=== PATIENT | male | born 1930 | race Caucasian/White ===

== ENCOUNTER 2020-05-29 13:57 | Emergency (ER) | payer OTHER ==
[~2020-05-29] VITALS: Ht 172.7 cm; Wt 71.2 kg
[2020-05-29 15:47] LABS: ABSOLUTE NEUTROPHILS 6.4 thou/uL (1.4-8.2); BASOPHILS 0.8 % (0.0-2.0); EOSINOPHILS 1.2 % (0.0-3.0); HEMATOCRIT 36.6 % (42.0-52.0); HEMOGLOBIN 12.2 gm/dL (14.0-18.0); LYMPHOCYTES 12.8 % (24.0-44.0); MCHC 33.3 g/dL (28.0-37.0); MCV 93.2 fL (80.0-100.0); PLATELET COUNT 193 thou/uL (150-400); POLYS 76.2 % (36.0-66.0); RBC 3.93 mil/uL (4.50-6.00); RDW 13.9 % (10.5-14.5); WBC 8.4 thou/uL (4.0-11.0)
[2020-05-29 16:05] LABS: CALCIUM 8.6 mg/dL (8.5-10.1); CREATININE 1.4 mg/dL (0.7-1.3); POTASSIUM 3.6 mmol/L (3.5-5.1)
[2020-05-29 16:11] LABS: ALBUMIN 3.1 g/dL (3.4-5.0); TOTAL BILIRUBIN 0.7 mg/dL (0.2-1.0); TOTAL PROTEIN 5.9 g/dL (6.4-8.2)
[2020-05-29] MEDS ORDERED: COLACE100 MG PO (16:25)
[2020-05-29] MEDS ORDERED: BUPROPION XL300 MG PO (16:25)
[2020-05-29] MEDS ORDERED: ASA81BEC PO (16:25)
[2020-05-29] MEDS ORDERED: DONEPEZIL HCL5 MG PO (16:26)
[2020-05-29] MEDS ORDERED: PROSCAR 5MG TABL5 M1 PO (16:26)
[2020-05-29] MEDS ORDERED: LOPRESSOR50 MG PO (16:27)
[2020-05-29] MEDS ORDERED: MAGNESIUM250 MG PO (16:27)
[2020-05-29] MEDS ORDERED: TAMSULOSIN HCL0.4 MG PO (16:28)
[2020-05-29] MEDS ORDERED: VITAMIN C500 M2 PO (16:28)
[2020-05-29] MEDS ORDERED: QUETIAPINE FUMA25 MG PO (16:28)
--- NOTE | 2020-05-29 16:28 | EKG ---
[facility] [place] [address] ELECTROCARDIOGRAM REPORT Name: YONNY BONILLA Room #: PRE M.R.#: [id number] Admission: Attend Phys: Discharge: Date of : [birth year] Report #: [id number] THIS REPORT FOR: cc: Alfred Ortiz MD [facility] ~ THIS REPORT FOR: //name// [facility] ED Test Date: 2020-05-29 Test Time: 15:44:19 Pat Name: YONNY BONILLA Department: Room: Gender: M Lineman A Class: : 1930 Requested By: Pranay Raygoza Order Number: [id number] MD: Alfred Ortiz Measurements Intervals [place] Rate: 66 P: 22 DE: 190 QRS: -37 QRSD: 115 T: 25 QT: 439 QTc: 460 Interpretive Statements Sinus rhythm Nonspecific IVCD with LAD Left ventricular hypertrophy Artifact in lead(s) II,aVR,aVF,V1,V2,V3,V4,V5,V6 No previous ECG available for comparison Electronically Signed On 05-29-2020 16:28:15 CHRONOMETER TESTER by Alfred Ortiz [email or web address] <ELECTRONICALLY SIGNED> By: Alfred Ortiz MD, FACC 05/29/20 1628 [id number] Alfred Ortiz MD, [facility] /EPI
[2020-05-29] MEDS ORDERED: VITAMIN D PO (16:30)
[2020-05-29] MEDS ORDERED: REFRESH OPHTHALMIC (16:31)
[2020-05-29] MEDS ORDERED: SYSTANE 0.6% OPHTHALMIC (16:33)
[2020-05-29 16:43] LABS: URINE BILIRUBIN NEGATIVE (Negative); URINE BLOOD 3+ (Negative); URINE CLARITY TURBID; URINE COLOR RED; URINE GLUCOSE-RANDOM* NEGATIVE (Negative); URINE KETONES 1+ (Negative); URINE PROTEIN (DIPSTICK) 2+ (Negative); URINE SPECIFIC GRAVITY 1.025 (1.005-1.035); URINE UROBILINOGEN 0.2 E.U./dl (0.2-1.0)
[2020-05-29 16:44] LABS: URINE LEUKOCYTES-REFLEX 1+ (Negative); URINE NITRITE-REFLEX POSITIVE (Negative)
[2020-05-29] MEDS ORDERED: TYLENOL325 MG PO (16:57)
[2020-05-29] MEDS ORDERED: FISH OIL 1,001000 M3 PO (16:57)
[2020-05-29 16:58] LABS: URINE RBC >20 Many /HPF (0-2)
[2020-05-29] MEDS ORDERED: IBUPROFEN 400400 M1 PO (16:58)
[2020-05-29] MEDS ORDERED: ATIVAN0.5 M1 PO (16:58)
[2020-05-29 16:59] LABS: BACTERIA-REFLEX 1-9 Few /HPF (None Seen); CASTS None Seen /LPF (None Seen); CRYSTALS None Seen /LPF (None Seen); SQUAMOUS None Seen /LPF (0-3); URINE WBC-REFLEX 6-15 Few /HPF (0-5)
[2020-05-29] MEDS ORDERED: MIRALAX17 GM PO (17:00)
[2020-05-29 21:20] VITALS: BP 129/76
== END 2020-05-29 21:02 ==
LOC: ER 13:57
PROVIDERS: Emergency Medicine
DX: T45.1X1A Poisoning by antineoplastic and immunosuppressive drugs, accidental (unintentional), initial encounter (principal); R45.1 Restlessness and agitation; N39.0 Urinary tract infection, site not specified; Z79.82 Long term (current) use of aspirin; Z79.899 Other long term (current) drug therapy; Z20.828 Contact with and (suspected) exposure to other viral communicable diseases; Y92.89 Other specified places as the place of occurrence of the external cause

== ENCOUNTER 2020-05-29 18:51 | Inpatient (IN) | payer OTHER ==
[~2020-05-29] VITALS: Ht 180.3 cm; Wt 69.3 kg
[~2020-05-29 18:51] MED LIST: ASA81BEC PO; ATIVAN0.5 M1 PO; BUPROPION XL300 MG PO; COLACE100 MG PO; DONEPEZIL HCL5 MG PO; FISH OIL 1,001000 M3 PO; IBUPROFEN 400400 M1 PO; LOPRESSOR50 MG PO; MAGNESIUM250 MG PO; MIRALAX17 GM PO; PROSCAR 5MG TABL5 M1 PO; QUETIAPINE FUMA25 MG PO; REFRESH OPHTHALMIC; SYSTANE 0.6% OPHTHALMIC; TAMSULOSIN HCL0.4 MG PO; TYLENOL325 MG PO; VITAMIN C500 M2 PO; VITAMIN D PO
[2020-05-29 22:10] VITALS: BP 160/90
--- NOTE | 2020-05-30 02:45 | NUR ---
PT ARRIVED IN THE UNIT VIA CART ACCOMPANIED BY RN. PT TRANSFERED TO THE BED WITH MINIMUM ASSIST. PT ALERT AND ORIENTED TO SELF WITH CONFUSION. PT ASSISTED TO THE BATHROOM BUT NO RESULTS OBSERVED. PRIOR TO COMING TO THE ER, PT WAS LIVING AT [facility] IN THE MEMORY UNIT AND WAS BEING TREATED FOR UTI. PER ER REPORT, PT WAS GIVEN A DOSE OF IV ABT. PT IS A HIGH FALL RISK WITH A RECENT FALL AT THE SN[facility]. NO DELUSIONS NOTED THIS FAR. PT REMAINS CONFUSED AND BECAME COMBATIVE WHEN STAFF TRIED TO KEEP HIM IN BED. PT WAS PUT IN A NARESH CHAIR AND TAKEN TO THE DAY ROOM FOR CLOSE OBSERVATION. NO SIGNS OF SI/HI NOTED. WILL CTA.
--- NOTE | 2020-05-30 04:09 | NUR ---
Med rec completed with MAR from facility that patient resides. Patient currently prescribed Metoprolol Tartrate 25mg po daily, hold for BP <110/60 or pulse <60. Orders obtained to continue from Dr. Marcano. Pharmacist called stating that she does not feel comfortable continuing this medication due to it being Metoprolol Tartrate vs Metoprolol Succinate and would like for it to be clarified by MD during the day.
--- NOTE | 2020-05-30 07:24 | NUR ---
Patient has shown increase in impulsive behaviors. Toileted, provided fluids, provided activity pad. Patient now becoming aggressive by hitting, kicking, yelling at staff. Patient displaying unsteady gait and poor balance. Refusing to remain seated. Has required 1:1 supervision over the last 1 hour to keep patient and other peers safe. Spoke with Dr. Marcano. Orders obtained for Geodon 10mg IM STAT and 1:1 while awake due to impulsive and assaultive behaviors.
[2020-05-30 08:45] VITALS: BP 122/85
[2020-05-30 16:10] LABS: HEMATOCRIT 35.8 % (42.0-52.0); MCHC 33.7 g/dL (28.0-37.0); RBC 3.89 mil/uL (4.50-6.00); RDW 13.8 % (10.5-14.5); WBC 7.6 thou/uL (4.0-11.0)
[2020-05-30 16:17] LABS: CALCIUM 8.6 mg/dL (8.5-10.1); CREATININE 1.1 mg/dL (0.7-1.3); POTASSIUM 3.8 mmol/L (3.5-5.1)
--- NOTE | 2020-05-30 18:08 | NUR ---
Alert and orientated to name only, states he likes to be called "Guicho". Denies SI/HI. Agitated with alot of confused, advent focused speech at beginning of shift but then calmed down and slept. Became restless with alot of urinary urgency without any results. Small amts green stains with bloody appearing spots on diapers. Ativan and tylenol given mid afternoon with moderate results. Placed on 1:1 d/t extreme impulsitivity. Currently sleeping without s/o distress. Breath sounds clear t/o. Reg HR auscultated. Color pink with brisk capillary refill and palpable peripheral pulses. No significant UO, bladder scan done which showed >[address] Patton office called for orders--reached a Dr. Lazcano who stated Dr. Patton was his partner and that he was out of town. Discussed lack of UO, stains on diaper, UA from ER. He inquired why psych/hospitalist was not addressing and then stated that neither he or Dr. Patton had priviledges but suggested cleary, UA with cx and cipro 250mg bid and hospitalist consult. Dr. Krys ace, ordered hospitalist consult. Dr. Francisco ace, ordered cleary placement and then came and examined pt. Cleary placed with minimal difficulty, 750 cc of red urine returned with many small clots, ua sent to lab which was then discarded. Antibiotics started per order. Pt. sleeping comfortably after cleary placement. Active bowel sounds over soft round abdomen. Moderate soft, unformed brown stool per brief. Able to walk independently with steady gait but very impulsive and resistant at times to direction. Took medication whole with water. Currently sleeping in room without s/o distress.
[2020-05-30 19:45] VITALS: BP 164/97
[2020-05-30 22:47] VITALS: BP 148/92
--- NOTE | 2020-05-30 22:48 | NUR ---
BP at start of shift 164/97, left arm, lying. Patient refusing all PO meds at this time. BP re-checked manually on left arm, lying, 148/92. Message left with Yoseph WILEY.
--- NOTE | 2020-05-31 00:53 | NUR ---
PT CARE ASSUMED AT 1900. PT LAYING IN BED AT SHIFT CHANGE WITH NO SIGNS OF DISTRESS. PT AGITATED DURING MED PASS AND DECLINED TO TAKE HIS HS MEDS ADMINISTERED WHOLE. HE SPIT THEM OUT AND SAID, " NOT TONIGHT." THIS NURSE ATTEMPTED TO GIVE PT CRUSHED MEDS IN APPLE SAUCE BUT PT REFUSED AND BECAME AGITATED AND GETTING LOUD. PT CONFUSED AND DELUSIONAL. COMPLETE ASSESSMENT WAS NOT DONE PT WAS AGITATED. WILL CTM.
--- NOTE | 2020-05-31 04:46 | NUR ---
Patient woke up around 0230 and was attempting to pull out urinary catheter. Staff observed patient had been incontinent of bowel. Patient immediately became physically aggressive by kicking and hitting staff with his fists. Required staff x3 to complete senia care and linen change. Remained assaultive while addressing toileting needs. Education completed several times on need to clean patient and to not pull on catheter. Patient screaming, using foul language. Once senia care completed, patient was able to rest in bed without further issue.
[2020-05-31 07:36] VITALS: BP 157/82
--- NOTE | 2020-05-31 11:02 | NUR ---
ACCEPTED CARE OF PATIENT FROM 7P-7A SHIFT. PT IS UP WITH 1 ASSIST WITH WALKER TO DINING ROOM TO EAT. IS UNABLE TO FEED SELF AND IS ASSISTED BY STAFF. EATS 50%. ENC FLUIDS. PT IS CONFUSED A/0X 1. IS IMPULSIVE WITH THOUGHTS AND ACTIVITY. HAS A CASILLAS TO DD WITH BLOODY DRAINAGE. HGB IS 12.1 AND IS ON ABT FOR UTI. PT DAUGHTER CALLED AND UPDATE ON CARE GIVEN TO HER. TAKES HIS MEDS CRUSHED IN APPLESAUCE WITHOUT DIFFICULTY. DR MICHAEL HERE ORDER TO IRRIGATE CASILLAS WITH STERILE WATER OBTAINED AND 50CC STERILE WATER CARSON WELL. TO IRRIGATE Q 3HR TILL CLEARS. PT INCONTINENT OF BM BUT INDICATES HE WANTS TO SIT ON STOOL.
[2020-05-31 11:11] VITALS: BP 157/82
--- NOTE | 2020-05-31 12:29 | NUR ---
PT. INCREASING IRRITABLY DAY GOES ON. ABOUT 1200 LUNCH CAME, HE WAS STATING IN AN ANGRY VOICE, "I AM NOT EATING THIS! MY NAME IS [id number]. THAT IS NOT MY NAME. HE REPEATED THIS FOR OVER AN HOUR. HE KEPT SAYING, "THEY JUST CAN'T SPELL IT".
--- NOTE | 2020-05-31 17:02 | NUR ---
JULIOCESAR made several attempt to reach Pts daughter Tree (DPOA) to complete assessment. Monday at 3:47pm tree contacted JULIOCESAR and completed assessment.
--- NOTE | 2020-05-31 17:42 | NUR ---
1700-PT SETS AT TABLE TO EATS REQUIRES FEEDING BUT TRIES TO DRINK AND EAT A FEW BITES ON OWN.TOOK AFTERNOON MEDS CRUSHED.PT CONTINUES TO HAVE CASILLAS TO DD AND IT HAS BEEN IRRIGATED WITH 50CC STERILE WATER Q 3HRS. WITH RETURN OF RED TINGED URINE. APPEARS LESS MOY RED COLOR AND 600CC URINE OUTPUT NOTED AND DR MICHAEL HERE AT [facility]PPER TO SEE PT.PT IS RESTLESS IN CHAIR AT TIMES IS NOT COMBATIVE CONTINUES TO BE A/O X 1.
--- NOTE | 2020-05-31 18:38 | NUR ---
1814- pt is up in G/C color pink awake watching TV at times. b/p at 1750 is 89/47. taken in left arm is 84/41. at 181 B/P is 104/56. PT alert calm setting.evin continues to dd.
[2020-05-31 18:56] VITALS: BP 104/56
--- NOTE | 2020-06-01 04:34 | NUR ---
Assumed care on 05/31/20 @ 19:15, seated in cristi chair in the day room, watching Chief's football game. Makes comments in which the first short sentence seems pertinent to current activity, such as the football game, then his next sentence is a confused combination of words and unrelated ideas. Trying to hide his confusion and dementia. A&Ox2, not oriented to hospital and purpose of hospitalization, not oriented to president. Confused as to his catheter, saying, this is between you and your . Tries to pull catheter out. removed stat lock from thigh. Catheter Flushed as per orders. Output is red to burgandy in color. After flush is light clear pink. Awake much of the night, talking to himself. Bed in low position, bed alarm set, will continue to monitor as per [facility] unit protocol for safety and comfort.
[2020-06-01 04:53] VITALS: BP 104/56
--- NOTE | 2020-06-01 06:35 | NUR ---
Slept 9 hours overnight.
[2020-06-01 08:00] VITALS: BP 142/85
[2020-06-01 08:55] VITALS: BP 142/85
--- NOTE | 2020-06-01 12:37 | NUR ---
JULIOCESAR reviewed pt's chart and saw he resides at [facility] [phone]. JULIOCESAR contacted [facility] and got their fax number to send updates to them [phone]. JULIOCESAR faxed updates. SW team will continue to follow pt during his stay on this unit.
[2020-06-01 13:39] VITALS: BP 104/56
--- NOTE | 2020-06-01 13:45 | NUR ---
ASSUMED CARE AT 0700 THIS MORNING. PT. LYING IN BED WITH BLANKET OVER HIS ARMS AND TORSO. WHEN BLANKET WAS PEELED BACK, PT. WAS NOTED TO HAVE BOTH OF HIS HANDS ON HIS URINARY CATHETER PULLING ON IT. SMALL AMOUT OF BLOOD NOTED AT THE HEAD OF HIS PENIS AT CATHETER INSERTION SITE. STAFF FREED PT'S HANDS FROM HIS CATHETER. HIS UNDERWARE AND PANTS WAS PUT ON HIM AND HE WAS PLACED IN RECLINING CHAIR AND TAKEN TO THE DINING ROOM. PT. WAS CONTINOUSLY ANGRY ATTEMPTING TO KICK AND HIT STAFF. HE WAS CALLING STAFF "BITCH" AND "WITCH". HE WAS CONTINOUSLY KICKING AND HITTING. DR. MORA NOTIFIED OF THE SAME. HE ORDERED GEODON 15 MG IM AND THIS WAS GIVEN AT 0920. HE WENT TO SLEEP IN THE RECLINGING CHAIR. THIS RN APPROACHED HIM TO IRRIGATE HIS CASILLAS. HE WOULD NOT PERMIT THIS. HE CONTINUALLY CURSED AT THIS RESULTS ENGINEER, KICKING AND HITTING. DR. MORA NOTIFIED OF INABILITY TO IRRIGATE CASILLAS. DAUGHTER CALLED AND UPDATE PROVIDED. AFTER HE CALMED DOWN SOME, HIS CRUSHED MEDS IN APPLESAUCE WAS GIVEN TO HIM. HE DID EAT THIS. HE STILL WOULD NOT PERMIT HIS CASILLAS FLUSHED.
[2020-06-01 19:34] VITALS: BP 156/96
[2020-06-01 20:14] VITALS: BP 156/96
--- NOTE | 2020-06-01 23:53 | NUR ---
PATIENT HAS BEEN AGITATED ALL EVENING. PATIENT TAKEN FROM DINING ROOM TO BED AROUND 2030 TONIGHT. HE CONTINUES TO BE 1:1 WA. HE HAS A CASILLAS CATHETER IN THAT HE KEEPS PULLING ON AND URINE BAG IS BRIGHT RED FROM BLOOD. USED STERILE WATER TO IRRIGATE AT THAT TIME. URINE STILL APPEARS RED TO DD INTO CASILLAS BAG. REIRRIGATED LINE 3 HOURS LATER AND STILL ALOT OF BLOOD BUT URINE FLOW DID INCREASE SOME. WATCHED PATIENT HE RESTED KEEPING HIS HANDS OUTSIDE OF COVERS. CATHETER SECURED TO LEG WITH KERLIX. AFTER SEVERAL MINUTES PATIENT BEGAN PULLING FORCEFULLY ON CATHETER LINE STIMULATING BLOOD FLOW FROM THE PENIS. TOOK 3 NURSES TO HOLD DOWN AND CLEAN WHILE THIS NURSE CALLED DR MORA STAT FOR ORDERS. ORDER GIVEN FOR GEODON 20MG IM STAT. INJECTION GIVEN IN RIGHT THIGH. COVERS PLACED ON PATIENT AFTER TRYING TO CALM HIM DOWN. HE WAS VERY COMBATIVE, HITTING, BITING, AND KICKING PEOPLE. KEPT ARMS ABOVE BLANKETS. DOOR CAPTAIN WITH PATIENT 1:1 BESIDE BED AND LIGHTS TURNED OFF. PATIENT IS CALMING AT THIS TIME. CONTINUING TO MONITOR. BED IN LOW POSITION AND BED ALARM IS ON AND 1:1 WITH PATIENT.
--- NOTE | 2020-06-02 02:51 | NUR ---
PATIENT CONTINUED TO PULL ON HIS CASILLAS CATHETER AFTER HAVING GEODON 20MG IM. BLADDER SCANNED PATIENT AND CASILLAS IS DRAINING AND THERE WAS 4CC NOTED ON SCAN. CALLED DR MORA AND RECEIVED ORDER TO DC CATHETER. PRN BLADDER SCAN IF PATIENT HAS NOT VOIDED OR HAD INCONTINENCE. CATHETER REMOVED AND HAD A CLOT THAT CAME OUT WITH IT. PATIENT HAS HAD SOME DRIBBLE OF URINE WITH BRIGHT RED BLOOD. PATIENT WAS PLACED IN RECLINER AND MOVED TO THE DINING ROOM. HE WAS COMBATIVE AND DID NOT WANT LAP DAWN ON OR TO STAY SITTING IN RECLINER WITH CHAIR ALARM ON. HE KEPT STATING HE WANTED TO STAND UP. STOOD PATIENT UP AND HE SAT ON COUCH. OFFERED HIM ICE WATER AND HE SAT AND DRANK A CUP OF ICE WATER. HE THEN SAID HE NEEDED TO FIND A TOILET. WITH ASSIST X1 WALKED PATIENT TO HIS ROOM AND HE SAT ON TOILET. HE DID HAVE SMEARS OF STOOL BUT DID NOT VOID. WALKED PATIENT AROUND UNIT AND BACK TO RECLINER. HE RECLINED FOR AN HOUR AND WAS CALM AND COMPLIANT AND TALKED WITH NURSES. HE WAS TALKING TO HIMSELF AND TO HIS HE WAS SEEING. PATIENT THEN SAID HE WAS READY TO GO DOWN THE LOZA TO HIS ROOM HE WAS THINKING HE WAS IN HIS HOUSE, AND GO TO BED. 2 MEDICAL INSURANCE CODING SPECIALIST'S ASSISTED HIM TO HIS ROOM. HE DID NOT WANT TO USE THE BATHROOM. HE WENT TO BED WITHOUT INCIDENT. BED IN LOW POSITION AND BED ALARM IS ON. CONTINUING TO MONITOR FOR SAFETY AND STATUS OF PATIENT. MAYITO MELISSA NP DID COME BY TO EVALUATE PATIENT STATUS AND TO SPEAK WITH HIM. SHE DISCUSSED POST CASILLAS PROTOCOL WITH THIS NURSE. CONTINUING TO MONITOR.
--- NOTE | 2020-06-02 05:21 | NUR ---
PATIENT RESTING IN BED WITH EYES CLOSED. PATIENT HAS NOT VOIDED OR BEEN INCONTINENT FOR 4 HOURS. BLADDER SCAN READING OF 31CC FOUND. REFUSED TO USE TOILET. COMBATIVE THRU PROCEDURE. PATIENT CALMED AND BACK TO REST FOLLOWING BLADDER SCAN.
--- NOTE | 2020-06-02 06:37 | NUR ---
PATIENT RESTING IN BED. NO ACTIVE BLEEDING FROM URETHRA. DOES HAVE SCANT LEAKAGE OF BLOOD WITH MANIPULATION OF PENIS. PATIENT WAS NON COMBATIVE AND ALLOWED NURSE TO CHECK FOR BLEEDING AFTER BRIEF EXPLANATION OF WHY IT WAS NEEDED. PATIENT BACK TO SLEEP. HE HAD 2.6 HOURS OF SLEEP LAST NIGHT. BED IN LOW POSITION AND BED ALARM ON.
[2020-06-02 07:42] VITALS: BP 143/84
--- NOTE | 2020-06-02 12:30 | NUR ---
HAS REMAINED ON 1;1 SO FAR THIS SHIFT-INITIALLY RESISITVE WITH TAKING AM MEDICATIONS CLOSING MOUTH TIGHTLY STATING "I DON'T WANT THAT" DID LATER TAKE WITH PROMPTING AND ENCOURAGEMENT. APPEARS TO BE HAVING VISUAL HALLUCINATIONS YELLING AT THIS NURSE LOUDLY "I AM DYING TAKE THESE GLASS PEICES OFF-I AM COVERED IN CRUSHED GLASS. LATER IN SHIFT REPORTS THAT HE IS COVERED INSHARDS OF GLASS AGAIN. WAS INCONTINENT OF MODERATE AMOUNT RED TINGED URINE-BLADDER SCAN COMPLETED AT 1030 POST VOID AND 60 CC IN BLADDER PER SCAN
[2020-06-02 13:38] LABS: ABSOLUTE NEUTROPHILS 4.4 thou/uL (1.4-8.2); BASOPHILS 0.6 % (0.0-2.0); EOSINOPHILS 2.5 % (0.0-3.0); HEMATOCRIT 40.6 % (42.0-52.0); HEMOGLOBIN 13.3 gm/dL (14.0-18.0); LYMPHOCYTES 13.2 % (24.0-44.0); MCH 30.5 pg (26.0-34.0); MCHC 32.9 g/dL (28.0-37.0); MCV 92.9 fL (80.0-100.0); MONOCYTES 10.3 % (1.0-8.0); PLATELET COUNT 179 thou/uL (150-400); POLYS 73.4 % (36.0-66.0); RBC 4.37 mil/uL (4.50-6.00); RDW 14.3 % (10.5-14.5)
[2020-06-02 13:51] LABS: CALCIUM 9.1 mg/dL (8.5-10.1); POTASSIUM 3.7 mmol/L (3.5-5.1)
[2020-06-02 19:15] VITALS: BP 150/76
--- NOTE | 2020-06-03 02:01 | NUR ---
06-02-20 CARE TRANSFERRED 1899 OBSERVED PT SUPINE IN BED WITH EYES OPEN. 193 PT AAOX1, VSS, RR EVEN AND NONLABORED ON RA, PT REPORTS PAIN IN HIS JOINTS AND SCORES AT 5 ON 0-10 SCALE. PT DENIES SI/HI. PT PRESENTS RESTLESS AND COOPERATIVE. DURING MEDICATION ADMIN PT HAD NO DIFFICULTIES WITH CRUSHED MEDICATION IN APPLESAUCE, BUT NOTED PT CHEEKED MEDICATION AND SPIT MEDICATION ON FLOOR AND PT BECAME AGITATED AND YELLING, "THAT TASTE LIKE SHIT". PRN MEDICATION WAS ADMIN PRESCRIBED. LATER NOTED PT RESTING LEFT SIDE WITH EYES CLOSED IN BED. ZERO S/S OF ACUTE DISTRESS NOTED, PT WILL CONTINUE TO BE MONITOR PER [facility] PROTOCOL
[2020-06-03 07:45] VITALS: BP 107/58
[2020-06-03 11:15] VITALS: BP 107/58
--- NOTE | 2020-06-03 16:04 | NUR ---
Alert and orientated to name only. Calm, cooperative and compliant in AM, able to take a few steps to sit in gerichair. Participating in group. Denies SI/HI. Became agitated around lunchtime, using profanity and pushing against table. 5mg Olanzapine given per R arm. Breath sounds clear. Reg HR auscultated. Color pink with brisk capillary refill and palpable peripheral pulses. Small amt dried bldy drainage on brief, bladder scan done, >533. Mostly cooperative with straight cath for urine midmorning, 650 cc brown drainage. Active bowel sounds over soft, rounded abdomen. Smear of brown stool this AM. Cooperative with afternoon meds. Sitting in dining room without s/o distress.
--- NOTE | 2020-06-04 03:23 | NUR ---
06-03-20 CARE TRANSFERRED AT 1900 OBSERVED PT SITTING IN [facility] WITH LAPBUDDY IN PLACE. 2030 PT AAOX1, COMBATIVE AND CONFUSED REFUSING VS AND NURSING ASSESSMENT. LATER PT REFUSED MEDICATION AND SECURITY WAS CALLED AND PRN IM MEDICATION ADMIN IN RIGHT DELTOID. LATER PT WAS CALMER, BUT STILL AGGRESSIVE. ASSISTED PT INTO BED AND NOTED BRIEF WITH YELLOW URINE, PERIAREA CLEANED WITH SOAP, WATER AND PATTED DRY AND BERRIER CREAM. RESPONDED TO BED ALARM AND PT WAS SITTING ON SIDE OF BED AND TRYING TO GET UP. LATER ASSISTANT TECHNICIAN BROUGHT PT BACK OUT INTO DAY ROOM IN [facility] WITH LAPBUDDY IN PLACE. PT HAS NO S/S OF ACUTE DISTRESS, PT WILL CONTINUE TO BE MONITOR.
--- NOTE | 2020-06-04 08:21 | NUR ---
RT Progress Note- Rell's participation in the milieu and recreation groups has been variable and fairly limited overall d/t his cognitive impairment and impulsive behaviors. When Rell is yelling out or experiencing hallucinations he is disruptive to the milieu and requires 1;1 attention to calm him down which hinders the group. However, when he is calm, Rell is able to follow along in simple exercises or reminiscing groups. LINE HAUL DRIVER will continue to engage Rell and encourage positive behavior.
[2020-06-04 09:26] VITALS: BP 153/84
[2020-06-04 10:27] VITALS: BP 153/84
--- NOTE | 2020-06-04 13:44 | NUR ---
1300 RESUMMED CARE FROM OVERNIGHT SHIFT THIS AM, PATIENT IN NARESH CHAIR IN DAY ROOM SLEEPING. PATIENT HAD IM OF OLANZAPINE LAST NIGHT PATIENT DID NOT EAT MUCH OF HIS BREAKFAST. I CRUSHED PATIENTS MED AND PUT IT IN APPLESAUCE PATIENT. PATIENTS ABDOMEN SOFT FLAT BOWEL SOUNDS PRESENT LUNGS CLEAR. PATIENT IS ORIENTED TO SELF ONLY PATIENT IS NOT EATING OR DRINKING MUCH. HE DOES WAKE UP AND INTERACT WITH THE STAFF. WILL CONTINUE TO MONITOR PATIENT FOR SAFETY AND BEHAVIORS. WILL CONTINUE TO ENCOURAGE FLUIDS AND EATING.
--- NOTE | 2020-06-04 14:08 | NUR ---
JULIOCESAR faxed updates to [facility].
[2020-06-04 20:14] VITALS: BP 155/71
--- NOTE | 2020-06-05 04:57 | NUR ---
Assumed care of pt @ 1900. Pt calm et cooperative this shift. Took medications crushed in yogurt without difficulty. Was given dinner meal when asked for at beginning of shift as pt had not eaten it on prior shift. Ate 90% of meal et asked for snack when finished. Socialized in dayroom until HS. VSWNL. Health assessment with no abnormalities noted at present time. Denies SI/HI/AVH at present time. Currently resting in bed with eyes closed. Will continue to monitor per unit protocol.
[2020-06-05 09:43] VITALS: BP 119/112
--- NOTE | 2020-06-05 10:30 | NUR ---
ACCEPTED CARE OF PT FROM 7P- TO 7AM SHIFT. PT IS RESTING IN BED QUIETLY. IS ASSISTED UP WITH MAX OF 2 STAFF TO G/C. TO DINING ROOM FOR BREAKFAST AND IS FED HIS DIET BY STAFF. TAKES MEDS CRUSHED IN APPLESAUCE WELL. IS RESTLESS IN CHAIR, YELLING OUT AND HITTING AT STAFF. ZYPREXA IM GIVEN IN LEFT DELTOID AT 10AM. PT HAS NUMEROUS BRUISES ON HIS ARMS, SKIN APPEARS THIN AND HAS A SKIN TEAR ON LEFT FOREARM, COVERED WITH DRESSING. FEET UP WHILE IN CHAIR. DENIES DISCOMFORT.PT DAUGHTER SAMY CALLS TO GET UPDATE ON HIM.
--- NOTE | 2020-06-05 18:15 | NUR ---
1800- PT HAS HAD GOOD RESULTS FROM ZYPREXA INJ HE RECIEVED EARLIER TODAY. HAS NOT VOIDED AND WHEN ASSIST TO BED AND STRAIGHT CATH, 900CC DARK CROW URINE VIA STRAIGHT CATH OBTAINED. PT CARSON FAIR. HS CARE GIVEN AND ANUJ CARE GIVEN.
--- NOTE | 2020-06-06 05:06 | NUR ---
Assumed care of pt @ 1900. Pt calm et cooperative this shift. Took medications crushed in pudding without difficulty. Ambulates with assistance of cristi-chair. Refused vital signs this shift. Health assessment with no abnormalities noted at present time. Unable to assess SI/HI/AVH this shift due to increased confusion but does not demonstrate any signs or symptoms of acute emotional distress at present time. Currently resting in bed with eyes closed. Will continue to monitor per unit protocol.
[2020-06-06 07:39] VITALS: BP 131/81
[2020-06-06 08:10] VITALS: BP 131/81
--- NOTE | 2020-06-06 08:36 | NUR ---
PT SITTING IN NARESH CHAIR FOR BREAKFAST. PT STATED HE DIDN'T KNOW WHERE HE WAS ONLY THAT HIS NAME IS WALLY. PT TOOK MEDS CRUSHED IN YOGART, MEDS THAT CAN'T BE CRUSHED GAVE WHOLE WAS GIVEN IN YOGART AND HE CHEWED THEM UP. PT HAS LEFT SKIN TEAR TO ELBOW. PT SKIN IS VERY THIN AND HAS NUMBEROUS OF BRUISES TO ARMS. PT HAS TROUBLE URINATING ALSO, AND NEEDS STRAIGHT CATHED IF BLADDER SCANNED IS OVER ORDERED AMOUNT.
--- NOTE | 2020-06-06 11:00 | NUR ---
BLADDER SCANNED PT AND SHOWED 159ML OF URINE, DAY PROGRAM SUPERVISOR SAID HE WAS DRY THIS AM. SCARED PT WHEN APPROACHED HIM, HE TRIED TO KISS THIS AIRCRAFT ASSEMBLER ON THE FORHEAD.
--- NOTE | 2020-06-06 12:40 | NUR ---
PT STATED HE WANTED TO LAY DOWN AND REST. TRANSFERED PT VIA X2 ASSIST TO LAY DOWN FROM NARESH CHAIR. BED ALARM ON FOR SAFETY.
--- NOTE | 2020-06-06 13:20 | NUR ---
PT GOT UP ON OWN AND WALKED IN THE LOZA. STAFF ACCOMPANIED HIM TO NARESH CHAIR AND BACK TO DINNING ROOM.
--- NOTE | 2020-06-06 16:45 | NUR ---
BLADDER SCANNED AND SHOWED 416ML OF URINE IN BLADDER. AFTER BLADDER SCAN PT STATED HE NEEDED TO PEE. PLACED PT ON COMMODE X2 PERSON AND HE SAT AND TRIED TO URINATE. PT BRIEF HAD SMEAR OF OLD BLOOD AND CHANGED BRIEF AND ASSISTED WITH PANTS.
--- NOTE | 2020-06-06 18:00 | NUR ---
PT FINISHED DINNER, HE NEEDED ASSISTANCE WITH FEEDING. PT TAKEN TO ROOM AND HE STATED HE NEEDED TO PEE, SAT PT ON BSC AND HE WAS UNABLE TO VOID. STRAIGHT CATH WITH 15 AMHARIC CASILLAS AND GOT OUT 450ML OF TEA COLOR URINE AND ENDED WITH BLOOD DROP AT THE END. PT DIDN'T TOLERATE WELL, HE SAID TAKE IT OUT WHEN GOING INTO BLADDER. PT RELAXED AFTER URINE WAS DRAINING.
[2020-06-06 20:08] VITALS: BP 136/99
--- NOTE | 2020-06-07 04:20 | NUR ---
Assumed care of pt @ 1900. Pt calm et cooperative with pleasant demeanor this shift. Took medications crushed in applesauce without difficulty. Ambulates with assistance of gerichair. VSWNL. Health assessment with no abnormalities noted at present time. Unable to assess SI/HI/AVH due to confusion but pt does not demonstrate any signs or symptoms of acute emotional distress at present time. [facility] with eyes open. Will continue to monitor per unit protocol.
--- NOTE | 2020-06-07 08:15 | NUR ---
PT SITTING IN DINING ROOM. ASSISTED PT WITH FEEDING. PT STATED HE LIKED THE ORANGE JUICE. PT HAS BRUISES TO ARMS BILATERALY AND SKIN TEAR TO LEFT ELBOW AND STERI-STRIPS TO LEFT FORARM. PT LUNGS CLEAR. PT DENIES ANY PAIN. PT IN NARESH CHAIR. PT TOOK MEDS IN YOGART. PT DID SPIT OUT WHOLE MEDS ON HIS FOOD TRAY. PUT THE WHOLE PILLS IN YOGART AND TOLD PT THAT THERE WAS MEDS IN IT, AND TILL SWALLOW THEM. HE CHEWED THE MEDS AND UNABLE TO UNDERSTAND ABOUT SWALLOWING PILLS WHOLE.
[2020-06-07 08:30] VITALS: BP 137/71
[2020-06-07 09:01] VITALS: BP 137/71
--- NOTE | 2020-06-07 13:03 | NUR ---
PT TRYING TO HIS AND KICK STAFF. BLADDER SCANNED PT AND SHOWED 438ML OF URINE IN BLADDER. NOTFIED DR. MORA ABOUT BEHAVIOR AND RETENTION. HE WILL PUT IN ORDERS.
--- NOTE | 2020-06-07 13:11 | NUR ---
PT ROLLED TO ROOM AND WHEN TRYING TO TRANSFER PT TO BED X2 ASSIST HE SAID HE WASN'T GOING TO GO ANYWHERE WITH DR. MORA. PT STARTED HITTING AND KICKING. ADM GEODON 15MG IM TO LEFT ARM. PT THEN TRANSFERED TO BED. NEEDING ASSISTANCE FOR STRAIGHT CATH, PT HELD DOWN X4 PERSONS TO STRAIGHT CATH. GOT OUT 700ML OF TEA COLOER URINE WITH SMALL FLAKES OF BLOOD. PT SEEMED RESTFUL AFTER URINE EVACUATED.
--- NOTE | 2020-06-07 16:39 | NUR ---
SW sent progress notes and current medications to [facility].
[2020-06-07 19:57] VITALS: BP 164/92
--- NOTE | 2020-06-07 22:30 | NUR ---
ASSUMED PT CARE AT 2030. PT LYING QUIETLY IN BED WITH EYES CLOSED. NO DISTRESS NOTED AT THIS TIME. PT DROWSY BUT WAS EASILY AROUSABLE. PT TOOK HS MEDS WITHOUT ANY DIFFICULTY. NO AGITATION EXHIBITED. UNABLE TO ASSESS PAIN PT WAS UNABLE TO ANSWER ASSESSMENT QUESTIONS. LUNG SOUNDS CTA SUSAN. HEART SOUNDS NORMAL. BOWEL SOUNDS PRESENT AND DIMINISHED. SKIN BRUISED WITH COVERED SKIN TEARS. NO EDEMA NOTED. WILL CTM.
[2020-06-08 07:34] VITALS: BP 165/50
--- NOTE | 2020-06-08 11:24 | NUR ---
Assess due to length of stay. Admit to [facility] for dementia, behaviors, agitation, delerium. Usually tolerates heart healthy diet order well, eating 60-90%. Refused breakfast this am however. Wt hx not available. Has healthy BMI status of 21.3. On vitamin C and D supplementation. Presents at low nutrition risk at this time
--- NOTE | 2020-06-08 12:55 | NUR ---
JULIOCESAR contacted Miranda with [facility] to discuss hospice care for pt. No answer. JULIOCESAR left [facility]. JULIOCESAR team will continue to follow pt during his stay on this unit.
[2020-06-08 19:05] VITALS: BP 132/67
--- NOTE | 2020-06-09 02:03 | NUR ---
Assumed care on 05/29/20 @ 19:30, seated in a cristi chair in the day room, takes meds crushed in yogart. Retired to bed @ HS, is in bed but is restless, sleeping off and on.
--- NOTE | 2020-06-09 09:37 | NUR ---
Yesterday JULIOCESAR spoke with Cristina Rouse with [facility] and provided an update on pt. JULIOCESAR discussed hospice. Cristina said they use [facility]. JULIOCESAR told her she would fax to her an order. JULIOCESAR faxed an order for hospice. JULIOCESAR team will continue to follow pt during his stay on this unit.
--- NOTE | 2020-06-09 11:57 | NUR ---
PATIENT CARE ASSUMED AT 0700 - SLEPT IN TILL 0900 - TEMPERATURE WAS 100 WHEN VITALS TAKEN - RETAKEN ONCE AWAKE AND WAS 98.6. NO COUGHING OBSERVED - PVR ORDERED BY ATTENDING HOSPITALIST. WHEN PROCEDURE COMPLETED PATIENT HAD 485 CC OF RESIDUAL IN BLADDER. STRAIGHT CATH PERFORMED AND 700 CC OUTPUT DOCUMENTED. PATIENT TOLERATED WELL - DR. MORA AND JUSTYN CRUZ MGR. ASSISTED WITH PROCEDURE. PATIENT THEN ADMINISTERED MEDICATIONS IN PUDDING CRUSHED. LATER PHYSICAL THERAPY HAD PATIENT UP AND WORKED WITH HIM. AFTERWARD SITUATED IN DINING LOZA AND LUNCH ADMINISTERED. PATIENT NEEDS CLOSE MONITORING WILL GET UP AND HIGH FALL RISK BUT MANAGES TO AMBULATE SEVERAL FEET WITH VERY UNSTEADY GAIT.
[2020-06-09 13:00] LABS: URINE BILIRUBIN NEGATIVE (Negative); URINE BLOOD 3+ (Negative); URINE CLARITY CLOUDY; URINE COLOR YELLOW; URINE GLUCOSE-RANDOM* NEGATIVE (Negative); URINE KETONES 1+ (Negative); URINE LEUKOCYTES-REFLEX TRACE (Negative); URINE NITRITE-REFLEX NEGATIVE (Negative); URINE PROTEIN (DIPSTICK) TRACE (Negative)
[2020-06-09 13:19] LABS: CASTS None Seen /LPF (None Seen); CRYSTALS None Seen /LPF (None Seen); MUCUS 0-3 Light strn/LPF (None Seen); SQUAMOUS 0-3 Few /LPF (0-3)
[2020-06-09 13:21] LABS: URINE RBC >20 Many /HPF (0-2); URINE WBC-REFLEX 0-5 Rare /HPF (0-5)
[2020-06-09 13:23] LABS: BACTERIA-REFLEX 1-9 Few /HPF (None Seen)
[2020-06-09 19:28] VITALS: BP 91/50
--- NOTE | 2020-06-10 04:50 | NUR ---
06-09-20 CARE TRANSFERRED 1900 OBSERVED PT SITTING IN DAY ROOM WITH LAP BUDDING IN PLACE WATCHING TV. PT AAOX1, VSS, RR EVEN AND NONLABORED ON RA, PT DENIES SI/HI AND PAIN. PT R FOREARM SKIN TEARS STERI STRIPS AND BANDAGE C/D/T. PT ATE 100% OF HS SNACK. PT PRESENTED CONFUSED BUT COOPERATIVE THROUGHOUT NURSING ASSESSMENT. DURING MEDICATION ADMIN PT HAD NO DIFFICULTIES. LATER ASSISTED PT INTO BED AND PT BLADDER WAS SCANNED 173ML. THIS AM ASSISTED WITH CHANGING PT BRIEF AND SMALL AMT OF YELLOW URINE IN BRIEF. ZERO S/S OF ACUTE DISTRESS NOTED, PT WILL BE MONITOR PER [facility].
[2020-06-10 09:00] VITALS: BP 129/71
--- NOTE | 2020-06-10 11:00 | NUR ---
PATIENT WAS UP IN GERICHAIR, SITTING IN DAYROOM WHEN CARE ASSUMED. PATIENT IS ALERT TO SELF, FORGETFUL, AND CONFUSED. PATIENT TOOK ALL MEDICATION WHOLE WITHOUT DIFFICULTY. HE IS EATING MEALS, AND DRINKING FLUID FAIRLY WELL WITH ASSIST OF STAFF. PATIENT DENIES SUICIDAL IDEATION, "AM FINE". UNABLE TO APPROPRIATELY RESPOND TO FURTHER ASSESSMENT QUESTIONS DUE TO COGNITIVE IMPAIRMENT. NO SIGN OF PAIN, OR ACUTE SIGN OF DISTRESS NOTED. BLADDER SCAN COMPLETED THIS MORNING WITH RESULT 256ML. DR. MORA AWARE. GOT A CALL FROM [facility] ([facility]) WHO STATES "DR. BURGOS SAID PUTTING S/P CATH ON PATIENT IS NOT A GOOD IDEA, HE THEO PULL IT OUT". DR. MORA NOTIFIED.
--- NOTE | 2020-06-10 14:36 | NUR ---
JULIOCESAR faxed updates. JULIOCESAR was told by Dr. Kim that pt will be ready for d/c tomorrow. JULIOCESAR contacted [facility] to speak to Cristina Rouse about discharge of pt. SW team will continue to follow pt during his stay on this unit.
[2020-06-10 19:28] VITALS: BP 127/79
[2020-06-10 21:45] VITALS: BP 127/79
--- NOTE | 2020-06-10 21:52 | NUR ---
06-10-20 CARE TRANSFERRED 1899 OBSERVED PT SITTING IN GERICHAIR WITH LAPBUDDY IN PLACE IN DAY ROOM. 1954 PT DROWSY AAOX1, VSS, RR EVEN AND NONLABORED ON RA. NO SELF HARM BEHAVIOR OBSERVED. PT ATE 100% OF HS SNACK. 2125 RECEIVED CALL FROM BLANQUITA SNEED IN LAB ABOUT POSITIVE COVID PCR TEST RESULT. PT WAS THEN PLACED IN PT ROOM, BIOINFORMATICS ASSISTANT CONTACTED MAINTAINER OPERATOR AND HCP Sharon MORA AND PT IS BEING DISCHARGED FROM [facility] AND WILL BE ADMITED TO 3RD FLOOR. ZERO S/S OF ACUTE DISTRESS, PT WILL CONTINUE TO BE MONITOR UNTIL DISCHARGE COMPLETE
[2020-06-10] MEDS ORDERED: RISPERDAL 1 MG T1 MG PO (22:30)
== END 2020-06-10 23:50 | disposition short-term general hospital (02) | DRG 884 ==
LOC: SBH
PROVIDERS: Hospitalist; ADMIT Psychiatry & Neurology Psychiatry; ATTEND Psychiatry & Neurology Psychiatry
DX: F03.91 Unspecified dementia, unspecified severity, with behavioral disturbance (principal); U07.1 COVID-19; N39.0 Urinary tract infection, site not specified; I10 Essential (primary) hypertension; F32.9 Major depressive disorder, single episode, unspecified; G47.00 Insomnia, unspecified; R33.9 Retention of urine, unspecified; F41.9 Anxiety disorder, unspecified; Z79.82 Long term (current) use of aspirin; Z79.899 Other long term (current) drug therapy
CPT/HCPCS: 10880

== ENCOUNTER 2020-06-10 23:28 | Inpatient (IN) | payer OTHER ==
[~2020-06-10] VITALS: Ht 180.3 cm; Wt 68.9 kg
[~2020-06-10 23:28] MED LIST changes: +RISPERDAL 1 MG T1 MG PO
[2020-06-11 00:30] VITALS: BP 140/72
--- NOTE | 2020-06-11 02:45 | NUR ---
PT WAS ADMITTED TO THE UNIT FROM [facility] AT 2345 IN A STABLE CONDITION.PT POSITIVE FOR COVID,ENHANCED PRECAUTION MAINTAINED.BRUISING AND SKIN TEAR NOTED.PT REF TO TAKE HIS PANTS OFF FOR SKIN ASSESSMENT.ADMISSION PARTIALLY DONE DUE TO PT NOT ABLE TO PROVIDE INFO.PT RESTING ON HIS BED AT THIS TIME.CALL LIGHT WITHIN REACH.
[2020-06-11 03:11] VITALS: BP 157/80
[2020-06-11 09:50] VITALS: BP 144/80
--- NOTE | 2020-06-11 10:28 | NUR ---
JULIOCESAR contacted [facility] and spoke to Cristina Rouse about pt and his covid status. She said they do not accept covid positive pts. SW asked her how long pt has to quarantine before they accept. She said she believes it is the recommended 14 days. JULIOCESAR explained the new update is a recommendation of 10 days. Cristina said that she thinks residential guidelines are 14 days. JULIOCESAR asked her to find out for sure so she can provide an accurate update to Dr. Kim. Cristina said ok. SW team will continue to follow pt during his stay on this unit.
--- NOTE | 2020-06-11 13:11 | NUR ---
SW sent referrals to [facility] for covid positive placement in their skilled units. SW team will continue to follow pt during stay on this unit.
--- NOTE | 2020-06-11 20:00 | NUR ---
Alert to name only. Calm and cooperative most of day, spent majority of time in bed. One episode where he got up and was walking around room in brief, redirected easily to bathroom. Confused speech. No speech/behavior suggestive of SI/HI. Breath sounds clear, no s/o resp distress. Reg HR auscultated. Color pink with brisk capillary refill and palpable peripheral pulses. Dark yellow urine per toilet and pads on bed X3. Bladder scan done prior to last void at approximatley 1715 which was >450, voided in toilet, repeat bladder scan was 276. Active bowl sounds over soft, rounded abdomen. Steristrips on forearm intact with scabbed blood over skin tear, optiform drsg removed. Daughter called for update, returned phone call at approximately 1915, appropriate questions and concerns. Wants to know how long pt will be quarrantined. Suggested she call tomorrow after team meeting for plan.
[2020-06-11 20:02] VITALS: BP 166/97
--- NOTE | 2020-06-12 05:36 | NUR ---
Assumed care of pt @ 1900. Pt calm et cooperative with pleasant demeanor this shift. Took medications crushed in yogurt without difficulty. Ambulated in room with very unsteady gait. VSWNL. Health assessment with no abnormalities other than previously noted. Denies SI/HI/AVH but unsure if pt understood questions. Pt does not demonstrate any signs or symptoms of any acute emotional distress at present time. Currently resting in cristi-chair with eyes open. Will continue to monitor per unit protocol.
[2020-06-12 07:30] VITALS: BP 175/94
--- NOTE | 2020-06-12 11:24 | NUR ---
JULIOCESAR received a call from Yanira with [facility] stating that they can accept pt. JULIOCESAR and Yanira arranged for a 1300 discharge. JULIOCESAR contacted Vianey Slater and provided an update. She said she was unaware pt had covid before last night. JULIOCESAR apologized and explained that he appears to be okay and his behaviors have been good. JULIOCESAR provided an update on pt's discharge to pt's nurse. JULIOCESAR team will continue to follow pt during his stay on this unit.
[2020-06-12] MEDS ORDERED: MINIPRESS1 MG PO (11:56)
--- NOTE | 2020-06-12 15:36 | NUR ---
Alert and orientated to name only this AM. Calm and cooperative, took meds crushed in apple sauce. Some confused speech. No speech/behavior suggestive of SI/HI. Breath sounds clear. No s/o resp distress. Reg HR auscultated. Color pink with brisk capillary refill and palpable peripheral pulses. Feet cool to touch. Incontinent of brown urine to pad/brief X3 this AM. Active bowel sounds over soft, rounded abdomen. Steristrips removed from skin tear on forearm, now scabbed over. Unsteady gait when ambulating in room to bathroom, needs assist X 1. Report called to [facility] to [facility]. Consent recieved via phone from daughter and DPOA Vianey Douglass. Transported via WC per [facility] to [facility] at about 1420. No s/o distress.
--- NOTE | 2020-06-12 16:12 | NUR ---
FAXED SCRIPT WRITTEN BY DR MORA REGARDING PT NOT IN RESTRAINTS PRIOR TO DC TO [facility] SPOKE WITH DOMENICO IN ADM SHE RECEIVED SCRIPT.
== END 2020-06-12 14:00 | DRG 178 ==
LOC: 3W 23:28 → SICU 06-11 00:11 → 3W 06-11 00:11 → SICU 06-11 07:04
PROVIDERS: ADMIT Hospitalist; ATTEND Hospitalist
DX: U07.1 COVID-19 (principal); F01.51 Vascular dementia, unspecified severity, with behavioral disturbance; F23 Brief psychotic disorder; I10 Essential (primary) hypertension; F32.9 Major depressive disorder, single episode, unspecified; E78.5 Hyperlipidemia, unspecified; G47.00 Insomnia, unspecified; F41.9 Anxiety disorder, unspecified; N40.1 Benign prostatic hyperplasia with lower urinary tract symptoms; R33.8 Other retention of urine; Z66 Do not resuscitate; Z79.899 Other long term (current) drug therapy; Z23 Encounter for immunization
CPT/HCPCS: 15000

== ENCOUNTER 2020-06-21 09:58 | Emergency (ER) | payer OTHER ==
[~2020-06-21] VITALS: Ht 172.7 cm; Wt 63.5 kg
[~2020-06-21 09:58] MED LIST changes: +MINIPRESS1 MG PO
[2020-06-21 13:27] VITALS: BP 74/38
--- NOTE | 2020-06-22 07:22 | EKG ---
[facility] [address] [place] [address] ELECTROCARDIOGRAM REPORT Name: EDILBERTO TORRES Room #: [facility] Ceballos#: [id number] Admission: 06/21/20 Attend Phys: Discharge: 06/21/20 Date of : [birth year] Report #: [id number] <ELECTRONICALLY SIGNED> By: Alfred Ortiz MD, FACC 06/22/20 0722 1020 1020 Alfred Ortiz MD, FACC /EPI
== END 2020-06-21 14:26 ==
LOC: ER 09:58
DX: U07.1 COVID-19 (principal); R06.03 Acute respiratory distress; I10 Essential (primary) hypertension; Z79.899 Other long term (current) drug therapy